=== PATIENT | female | born 1960 | race Native Hawaiian/Other Pacific Islander ===

== ENCOUNTER 2022-11-21 22:29 | Emergency (ER) | payer OTHER ==
[~2022-11-21] VITALS: Ht 162.6 cm; Wt 67.1 kg
[2022-11-21 22:40] VITALS: TEMP 97.9
[2022-11-22 00:21] LABS: POTASSIUM 4.4 mmol/L (3.6-5.2)
[2022-11-22 00:50] LABS: PLATELET COUNT 339 K/uL (152-353)
[2022-11-22 01:25] VITALS: BP 120/70
[2022-11-22] MEDS ORDERED: COLCRYS 0.6MG0.6 MG PO (11:56)
[2022-11-22] MEDS ORDERED: HYDROXYZINE HYD25 MG PO (11:57)
[2022-11-22] MEDS ORDERED: IRON325 MG PO (11:58)
[2022-11-22] MEDS ORDERED: HUMALOG KW100 UNIT/M SC (11:58)
[2022-11-22] MEDS ORDERED: LANTUS SOL100 UNIT/M SC (11:59)
[2022-11-22] MEDS ORDERED: LEVE250T PO (11:59)
[2022-11-22] MEDS ORDERED: PRAVASTATIN PO (12:00)
[2022-11-22] MEDS ORDERED: ALEN70TA19 PO (12:01)
[2022-11-22] MEDS ORDERED: CALCITRIOL0.25 MCG PO (12:01)
[2022-11-22] MEDS ORDERED: ERGOCALCIF50000 UNIT PO (12:03)
[2022-11-22] MEDS ORDERED: GLIM2TAB PO (12:03)
[2022-11-22] MEDS ORDERED: ESCI10TA PO (12:04)
== END 2022-11-22 01:25 | disposition still patient (30) ==
LOC: ED 22:29
PROVIDERS: Emergency Medicine Emergency Medical Services
DX: R46.89 Other symptoms and signs involving appearance and behavior (principal); Z11.52 Encounter for screening for COVID-19; Z04.6 Encounter for general psychiatric examination, requested by authority
CPT/HCPCS: 36415; 80053; 81002; 85027; 87635; 93005; 99283; U0003